=== PATIENT | female | born 1970 | race Caucasian/White ===

== ENCOUNTER 2025-02-05 10:16 | Emergency (ER) | payer OTHER, SELFPAY ==
[2025-02-05 10:20] VITALS: BP 200/85; PULSE 82; RESP 16; TEMP 36.6; O2SAT 100
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
== END 2025-02-05 13:06 | disposition home or self-care (01) ==
PROVIDERS: Emergency Provider Student in an Organized Health Care Education/Training Program
DX: S09.90XA Unspecified injury of head, initial encounter (principal); I10 Essential (primary) hypertension; V47.5XXA Car driver injured in collision with fixed or stationary object in traffic accident, initial encounter
CPT/HCPCS: 99282